=== PATIENT | male | born 1995 | race Two or more races ===

== ENCOUNTER 2020-03-02 10:12 | Emergency (ER) | payer OTHER ==
[2020-03-02] MEDS ORDERED: PROPOFOL INJ 200 MG/20 ML VIAL IV ONE (10:30)
[2020-03-02] MEDS ORDERED: NORMAL SALINE 1000 ML 1,000 ML IV ONE (10:31)
[2020-03-02] MEDS ORDERED: KETAMINE HCL INJ 500 MG/10 ML VIAL IV ONE (10:31)
[2020-03-02] MEDS ORDERED: DIPH/PERTUSS(ACELL)/TETANUS VAC/PF 0.5 ML SYR (>=10YO) IM ONE (10:32)
[2020-03-02] MEDS ORDERED: CEFAZOLIN INJ 1 GM VIAL IV ONE (10:32)
--- NOTE | 2020-03-02 10:35 | ER Document Report ---
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 + [facility] pt is able to move his extremity. Unaware of Tetanus is up to date. MY NOTES 24-year-old male arrives by POV with chief complaint of foreign body to his right knee while he was mary carmen today. He has 2 mary carmen nails in his right lateral prepatellar lateral distal thigh. He has no obvious bleeding. He is in no distress at this time. Pain is around 7 out of 10. He has a cdl dedicated truck driver. He speaks only Faroese. He has a brasswind instrument repairer with him. she is a friend of his and goes by Misty". She speaks perfect Kosovan and apparently Faroese Sudanese. she is bilingual and appears to be Faroese Sudanese as well. We also used a aircraft engine dismantler as provided by hospital. Pain is 3 out of 5. This went through his trousers. TRAVEL OUTSIDE OF THE [place] IN LAST 30 DAYS: No - Related Data Allergies/Adverse Reactions: No Known Allergies Allergy (Unverified 03/02/20 10:29) Past Medical History - Social History Smoking Status: Unknown if Ever Smoked Chew tobacco use (# tins/day): No Drug Abuse: None Lives with: Family Family History: Reviewed & Not Pertinent Patient has suicidal ideation: No Patient has homicidal ideation: No Physical Exam - Vital signs Vitals: Temp Pulse Resp BP Pulse Ox 98.8 F 87 20 132/72 H 100 03/02/20 10:17 03/02/20 10:17 03/02/20 10:17 03/02/20 10:17 03/02/20 10:17 Interpretation: Normal - General General appearance: Appears well, Alert - HEENT Head: Normocephalic, Atraumatic Eyes: Normal Pupils: PERRL - Respiratory Respiratory status: No respiratory distress Chest status: Nontender Breath sounds: Normal Chest palpation: Normal - Cardiovascular Rhythm: Regular Heart sounds: Normal auscultation Murmur: No - Abdominal Inspection: Normal Distension: No distension Bowel sounds: Normal Tenderness: Nontender Organomegaly: No organomegaly - Back Back: Normal, Nontender - Extremities General upper extremity: Normal inspection, Nontender, Normal color, Normal ROM, Normal temperature General lower extremity: Tender, Normal color, Normal temperature, Normal weight bearing, Other - Right lateral distal femur proximal knee with 2 nail gun nails in bedded to the flat of his skin.. No: Roxana's sign - Neurological Neuro grossly intact: Yes Cognition: Normal Orientation: AAOx4 Carly Coma Scale Eye Opening: Spontaneous Carly Coma Scale Verbal: Oriented Carly Coma Scale Motor: Obeys Commands Carly Coma Scale Total: 15 Speech: Normal Motor strength normal: LUE, RUE, LLE, RLE Sensory: Normal - Psychological Associated symptoms: Normal affect, Normal mood - Skin Skin Temperature: Warm Skin Moisture: Dry Skin Color: Normal Course - Vital Signs Vital signs: Temp Pulse Resp BP Pulse Ox 98.8 F 92 24 H 133/65 H 100 03/02/20 10:17 03/02/20 11:47 03/02/20 11:47 03/02/20 11:47 03/02/20 11:47 - Diagnostic Test Radiology reviewed: Reports reviewed Procedures - Conscious Sedation Conscious sedation Time started: 11:14 Time completed: 11:18 Consent obtained: Yes Prior complications: Procedural sedation Emergent conditions applies.: E. - ASA Classification Normal healthy pt.: P1. - ASA Classification Airway Evaluation: Normal anatomy Medications administered: Ketamine - 100 mg IV as pushed by [facility] and 100 mg propofol IV push by myself. The bottle was handed over to [facility] after procedure. Reversal agents: None I personally performed/intraservice time: Procedure Complications: No - Patient had 2 mary carmen nails removed from his right lateral distal thigh Critical Care Note - Critical Care Note Total time excluding time spent on procedures (mins): 30 Comments: Patient had 2 mary carmen nails removed from right distal thigh just proximal to his knee. These are approximately 2 inches long and had retaining barbs 2 of which were also removed. The 2 nails had intact retainers on one side. This left the other side with a removed retainer and both of these were found and placed in the sink with the nails. Patient reports he wants the nails for posteriorly and these were placed in a baggy for the patient. I advised patient through translators that he must see orthopedics and to stay off the injured right lower extremity until seen by these doctors. Use crutches as instructed. Discharge - Discharge Clinical Impression: Foreign body (FB) in soft tissue, Tetanus toxoid inoculation Injury of thigh, right Qualifiers: Encounter type: initial encounter Qualified Code(s): S79.921A - Unspecified injury of right thigh, initial encounter Condition: Stable Disposition: HOME, SELF-CARE Additional Instructions: Follow-up with orthopedics Dr. Cherry and return to ER as needed take medicines as directed avoid using her right lower extremity until seen by PMD and Dr. Cherry orthopedics. Use crutches to avoid using the right lower extremity for least 1 week. Take antibiotics as directed. May take Motrin and Tylenol 3 times a day as needed for pain. Keep wound clean and dry if possible for least 24 to 48 hours. Pat dry and continue to keep sterile conditions over puncture w ound. Prescriptions: Amoxicillin/Potassium Clav [Augmentin 875-125 Tablet] 1 tab PO BID #[id number] tab Referrals: ANDERSON CHERRY MD [ACTIVE STAFF] - Follow up as needed
--- NOTE | 2020-03-02 11:22 | RADIOLOGY REPORT (SQ) ---
EXAM DESCRIPTION: FEMUR RIGHT IMAGES COMPLETED DATE/TIME: 03/02/2020 11:02 am REASON FOR STUDY: bed 12 -foreign body COMPARISON: None. NUMBER OF VIEWS: One view. TECHNIQUE: A lateral radiographic image acquired of the right femur to include knee in at least one projection. LIMITATIONS: None. FINDINGS: MINERALIZATION: Normal. BONES: No acute fracture. No worrisome bone lesions. SOFT TISSUES: 2 nails are seen in the soft tissues just above the knee. OTHER: No other significant finding. IMPRESSION: There appear to be nails in the soft tissues just above the knee. TECHNICAL DOCUMENTATION: JOB ID: [id number] [email or web address]- All Rights Reserved Reading location - IP/workstation name: [email or web address]
--- NOTE | 2020-03-02 12:12 | RADIOLOGY REPORT (SQ) ---
EXAM DESCRIPTION: FEMUR RIGHT IMAGES COMPLETED DATE/TIME: 03/02/2020 11:38 am REASON FOR STUDY: 1 VIEW POST FOREIGN BODY REMOVAL COMPARISON: None. NUMBER OF VIEWS: Two views. TECHNIQUE: Two radiographic images acquired of the right femur to include hip and knee in at least o ne projection. LIMITATIONS: None. FINDINGS: MINERALIZATION: Normal. BONES: No acute fracture. No worrisome bone lesions. SOFT TISSUES: That is foreign bodies are no longer present. OTHER: No other significant finding. IMPRESSION: Successful foreign body removal. No osseous finding. TECHNICAL DOCUMENTATION: JOB ID: [id number] 2010 [employer]- All Rights Reserved Reading location - IP/workstation name: [email or web address]
[2020-03-02 13:36] VITALS: BP 157/84
== END 2020-03-02 13:37 | disposition home or self-care (01) ==
LOC: ER 10:12
DX: S71.141A Puncture wound with foreign body, right thigh, initial encounter (principal); W29.4XXA Contact with nail gun, initial encounter; Y99.0 Civilian activity done for income or pay
CPT/HCPCS: 20103; 99285; 96361; 90471; 96375; 96365; 36415; 87040; 73552; 90715; J0690; J3490; J7030; J2704